=== PATIENT | female | born 1960 | race Caucasian/White ===

== ENCOUNTER 2016-07-28 00:05 | Emergency (ER) | payer OTHER | END 2016-07-28 09:03 | disposition short-term general hospital (02) | LOC: ER 00:05 | DX: J18.9 Pneumonia, unspecified organism (principal); R09.02 Hypoxemia; F32.9 Major depressive disorder, single episode, unspecified; F41.9 Anxiety disorder, unspecified; K21.9 Gastro-esophageal reflux disease without esophagitis; I10 Essential (primary) hypertension; F17.210 Nicotine dependence, cigarettes, uncomplicated; Z79.899 Other long term (current) drug therapy; Z79.82 Long term (current) use of aspirin | CPT/HCPCS: 36415; 80307; 96365; 96366; 96375; G0480 ==

== ENCOUNTER 2016-10-18 10:40 | Emergency (ER) | payer OTHER | END 2016-10-18 11:56 | disposition home or self-care (01) | LOC: ER 10:40 | DX: R30.0 Dysuria (principal); M54.5 Low back pain; I10 Essential (primary) hypertension; F41.8 Other specified anxiety disorders; F17.210 Nicotine dependence, cigarettes, uncomplicated; Z79.899 Other long term (current) drug therapy; Z90.49 Acquired absence of other specified parts of digestive tract; Z90.710 Acquired absence of both cervix and uterus ==